=== PATIENT | male | born 1965 | race Caucasian/White ===

== ENCOUNTER 2019-04-25 18:20 | Inpatient (IN) ==
[2019-04-25] MEDS ORDERED: Ipratropium/Albuterol Neb 3 ML IH ONE (18:32)
[2019-04-25 19:06] LABS: Basophils % 0.2 %; Hematocrit 43.4 % (37.5-50.1); Hemoglobin 15.2 g/dL (12.9-16.9); Lymphocytes # 0.7 K/mcL (0.6-4.6); Lymphocytes % 13.9 %; Mean Corpuscular Hemoglobin 31.9 pg (28.0-33.3); Mean Corpuscular Volume 91.2 fL (83.0-100.0); Mean Platelet Volume 10.8 fL (9.4-12.4); Monocytes # 0.3 K/mcL (0.0-1.3); Monocytes % 5.9 %; Platelet Count 106 K/mcL (140-400); Red Blood Count 4.76 M/mcL (4.19-5.50); White Blood Count 5.1 K/mcL (4.3-11.1)
[2019-04-25 19:20] LABS: Acetaminophen < 10 mcg/mL (10-20); Alanine Aminotransferase 13 Units/L (7-52); Albumin 4.1 g/dL (3.5-5.7); Albumin/Globulin Ratio 1.4 (1.1-2.2); Alkaline Phosphatase 40 Units/L (34-104); Aspartate Amino Transferase 40 Units/L (13-39); BUN/Creatinine Ratio 12 (6-26); Bilirubin,Direct 0.2 mg/dL (0.0-0.2); Bilirubin,Indirect 0.6 mg/dL (0.0-1.0); Bilirubin,Total 0.8 mg/dL (0.3-1.0); Blood Urea Nitrogen 11 mg/dL (6-20); Carbon Dioxide 25 mEq/L (23-29); Chloride 97 mEq/L (98-107); Ethanol < 10 mg/dL (Less than 10); Glucose 103 mg/dL (70-105); Osmolality,Calculated 274 (280-300); Salicylate < 2.5 mg/dL (15.0-30.0); Sodium 132 mEq/L (136-145); Total Protein 7.1 g/dL (6.4-8.9); eGFR For African Americans > 60 (> 60); eGFR For Non-African Americans > 60 (> 60)
[2019-04-25 19:32] LABS: Thyroid Stimulating Hormone 0.238 mcIU/mL (0.340-5.600)
[2019-04-25] MEDS ORDERED: Potassium Effervescent 25 MEQ TABLET.EFF PO ONE (19:34)
[2019-04-25 19:39] LABS: Bilirubin,Urine Small (Negative); Blood,Urine Negative (Negative); Clarity,Urine Clear (Clear); Color,Urine Dark Yellow (Yellow); Glucose,Urine (UA) Normal (Normal); Ketones,Urine Trace mg/dL (Negative); Leukocyte Esterase,Urine Negative (Negative); Nitrite,Urine Negative (Negative); Protein,Urine 100 mg/dL (Neg-Trace); Specific Gravity,Urine 1.027 (1.010-1.025); Urobilinogen,Urine Normal (Normal)
[2019-04-25 19:42] LABS: Bacteria,Urine None Seen per hpf (None-Few); Hyaline Casts,Urine Few per lpf (None-Few); RBC,Urine 0-3 per hpf (0-3); Squamous Epithelial Cell,Urine Many per lpf (None-Few)
[2019-04-25 19:54] LABS: Amphetamine Screen,Urine Negative ng/mL (Cutoff=1000); Barbiturate Screen,Urine Negative ng/mL (Cutoff=200); Benzodiazepines Screen,Urine Positive ng/mL (Cutoff=200); Cannabinoid Screen,Urine Negative ng/mL (Cutoff = 50); Cocaine Screen,Urine Negative ng/mL (Cutoff= 300); Opiate Screen,Urine Positive ng/mL (Cutoff=300); Phencyclidine Screen,Urine Negative ng/mL (Cutoff=25)
[2019-04-25 19:55] LABS: Mucus,Urine Moderate per lpf (Few); Renal Epithelial Cells,Urine Few per hpf (None-Few)
[2019-04-25] MEDS ORDERED: Ondansetron ODT 4 MG TAB.RAPDIS SL ONE (20:08)
[2019-04-25] MEDS ORDERED: Nicotine 21 MG PATCH.TD24 TD ONE (20:35)
[2019-04-25] MEDS ORDERED: Albuterol 2.5 MG/3 ML NEBULIZER IH ONE (21:41)
[2019-04-25] MEDS ORDERED: 0.9 % Sodium Chloride 1,000 ML IVC ONE (23:39)
[2019-04-25] MEDS ORDERED: levoFLOXacin 750 MG/150 ML 750 MG/150 ML BAG IVPB ONE (23:39)
[2019-04-25 23:42] LABS: Triiodothyronine (T3) Free 3.84 pg/mL (2.50-3.90)
[2019-04-26] MEDS ORDERED: 0.9 % Sodium Chloride 1,000 ML IVC ONE (00:26)
[2019-04-26] MEDS ORDERED: Naloxone 0.4 MG/ML INJ IVP PRN (02:35)
[2019-04-26] MEDS ORDERED: Ondansetron 4 MG/2 ML VIAL IVP PRN (02:35)
[2019-04-26] MEDS: Ipratropium/Albuterol Neb 3 ML IH SCH ×7 (03:50→23:19)
[2019-04-26] MEDS: 0.9 % Sodium Chloride 1,000 ML IVC SCH ×2 (04:44→13:56)
[2019-04-26] MEDS ORDERED: Haloperidol Lactate 5 MG/ML VIAL IVP ONE ×3 (05:12→21:46)
[2019-04-26] MEDS ORDERED: *HR* Promethazine 25 MG/ML VIAL IVP ONE ×3 (05:12→21:41)
[2019-04-26 06:41] LABS: Hematocrit 37.3 % (37.5-50.1); Immature Granulocytes % 0.9 % (0-4); Lymphocytes # 0.8 K/mcL (0.6-4.6); Lymphocytes % 17.2 %; Mean Corpuscular HGB Conc 34.9 g/dL (31.6-35.5); Mean Corpuscular Hemoglobin 32.1 pg (28.0-33.3); Mean Corpuscular Volume 92.1 fL (83.0-100.0); Mean Platelet Volume 10.8 fL (9.4-12.4); Monocytes # 0.2 K/mcL (0.0-1.3); Monocytes % 4.7 %; Neutrophils # 3.6 K/mcL (1.6-8.9); Red Blood Count 4.05 M/mcL (4.19-5.50); Red Cell Distribution Width 15.1 % (11.5-14.5); Segmented Neutrophils % 77.2 %; White Blood Count 4.7 K/mcL (4.3-11.1)
[2019-04-26 06:42] LABS: Platelet Count 93 K/mcL (140-400)
[2019-04-26 06:43] LABS: Immature Platelets 4.8 % (1.1-6.1)
[2019-04-26 07:02] LABS: BUN/Creatinine Ratio 13 (6-26); Blood Urea Nitrogen 10 mg/dL (6-20); Calcium 8.1 mg/dL (8.6-10.3); Carbon Dioxide 23 mEq/L (23-29); Chloride 100 mEq/L (98-107); Glucose 112 mg/dL (70-105); Magnesium 1.7 mg/dL (1.6-2.6); Osmolality,Calculated 280 (280-300); Sodium 135 mEq/L (136-145); eGFR For African Americans > 60 (> 60); eGFR For Non-African Americans > 60 (> 60)
[2019-04-26] MEDS: Potassium Chloride Elixir 20 MEQ/15 ML UDC PO SCH ×2 (08:14→16:36)
[2019-04-26] MEDS: *HR* Enoxaparin 40 MG/0.4 ML SYRINGE SQ SCH (08:15)
[2019-04-26] MEDS ORDERED: Haloperidol Lactate 5 MG/ML VIAL IM PRN ×2 (09:46→09:48)
[2019-04-26] MEDS ORDERED: *HR* LORazepam 2 MG/ML VIAL IVP PRN (12:17)
[2019-04-26 13:10] LABS: Creatine Kinase 707 Units/L (30-223)
[2019-04-26] MEDS ORDERED: Potassium Chloride Elixir 20 MEQ/15 ML UDC PO ONE (14:26)
[2019-04-26] MEDS: *HR* LORazepam 2 MG/ML VIAL IVP PRN (20:00)
[2019-04-26] MEDS ORDERED: Nicotine 21 MG PATCH.TD24 TD ONE (20:24)
[2019-04-26 20:33] LABS: ABG Base Excess -1 mEq/L (-2 to 3); ABG HCO3 26 mEq/L (21-27); ABG Oxygen Saturation 61 % (95-98); ABG PCO2 47 mmHg (35-45); ABG PH 7.34 pH Units (7.32-7.45); ABG PO2 34 mmHg (85-104); ABG TCO2 27 mEq/L (20-26)
[2019-04-26 20:39] LABS: ABG Base Excess -2 mEq/L (-2 to 3); ABG HCO3 23 mEq/L (21-27); ABG Oxygen Saturation 92 % (95-98); ABG PCO2 39 mmHg (35-45); ABG PH 7.38 pH Units (7.32-7.45); ABG PO2 65 mmHg (85-104); ABG TCO2 24 mEq/L (20-26)
[2019-04-26] MEDS ORDERED: Levalbuterol Neb 1.25 MG/3 ML ONE (20:41)
[2019-04-26] MEDS: Levalbuterol Neb 1.25 MG/3 ML IH SCH (23:20)
[2019-04-27] MEDS ORDERED: levoFLOXacin 750 MG/150 ML 750 MG/150 ML BAG IVPB SCH (00:01)
[2019-04-27] MEDS: *HR* LORazepam 2 MG/ML VIAL IVP PRN ×2 (00:11→20:26)
[2019-04-27 01:14] LABS: Bilirubin,Urine Small (Negative); Blood,Urine Moderate (Negative); Clarity,Urine Clear (Clear); Color,Urine Yellow (Yellow); Glucose,Urine (UA) Normal (Normal); Ketones,Urine 80 mg/dL (Negative); Leukocyte Esterase,Urine Negative (Negative); Nitrite,Urine Negative (Negative); Protein,Urine 100 mg/dL (Neg-Trace); Specific Gravity,Urine >= 1.030 (1.010-1.025); Urobilinogen,Urine Normal (Normal)
[2019-04-27 01:15] LABS: Bacteria,Urine None Seen per hpf (None-Few); Hyaline Casts,Urine None Seen per lpf (None-Few); Squamous Epithelial Cell,Urine Many per lpf (None-Few)
[2019-04-27 01:32] LABS: RBC,Urine 0-3 per hpf (0-3)
[2019-04-27 02:04] LABS: Basophils % 0.2 %; Hematocrit 38.1 % (37.5-50.1); Immature Granulocytes % 0.6 % (0-4); Immature Platelets 5.4 % (1.1-6.1); Lymphocytes % 21.3 %; Mean Corpuscular HGB Conc 34.1 g/dL (31.6-35.5); Mean Corpuscular Hemoglobin 31.9 pg (28.0-33.3); Mean Corpuscular Volume 93.6 fL (83.0-100.0); Mean Platelet Volume 10.6 fL (9.4-12.4); Monocytes # 0.3 K/mcL (0.0-1.3); Monocytes % 5.7 %; Neutrophils # 3.4 K/mcL (1.6-8.9); Red Blood Count 4.07 M/mcL (4.19-5.50); Red Cell Distribution Width 15.4 % (11.5-14.5); Segmented Neutrophils % 72.2 %; White Blood Count 4.7 K/mcL (4.3-11.1)
[2019-04-27] MEDS ORDERED: Acetaminophen IV 1,000 MG/100 ML INFUS..BTL IVPB ONE (02:04)
[2019-04-27 02:07] LABS: Platelet Count 89 K/mcL (140-400)
[2019-04-27 02:21] LABS: BUN/Creatinine Ratio 17 (6-26); Blood Urea Nitrogen 13 mg/dL (6-20); Calcium 8.4 mg/dL (8.6-10.3); Carbon Dioxide 25 mEq/L (23-29); Chloride 103 mEq/L (98-107); Glucose 99 mg/dL (70-105); Osmolality,Calculated 286 (280-300); Potassium 3.5 mEq/L (3.5-5.1); Sodium 138 mEq/L (136-145); eGFR For African Americans > 60 (> 60); eGFR For Non-African Americans > 60 (> 60)
[2019-04-27] MEDS: Levalbuterol Neb 1.25 MG/3 ML IH SCH ×2 (04:28→07:39)
[2019-04-27] MEDS ORDERED: Nicotine 21 MG PATCH.TD24 TD ONE (07:14)
[2019-04-27] MEDS ORDERED: Furosemide 40 MG/4 ML VIAL IVP ONE ×2 (08:18→12:00)
[2019-04-27] MEDS: *HR* Enoxaparin 40 MG/0.4 ML SYRINGE SQ SCH (09:43)
[2019-04-27] MEDS: Nicotine 21 MG PATCH.TD24 TD SCH (09:43)
[2019-04-27] MEDS ORDERED: Isovue-370 500 ML BOTTLE IVP ONE ×2 (10:46→10:51)
[2019-04-27] MEDS: Budesonide/Formoterol 160/4.5 1 PUFF INH IH SCH ×2 (11:47→20:29)
[2019-04-27] MEDS: MethylPREDNISolone 40 MG/ML VIAL IVP SCH ×3 (11:57→20:26)
[2019-04-27] MEDS: Ampicillin 2 GM in 0.9 % Sodium Chloride Mini Bag 100 ML IVPB SCH ×4 (11:57→23:48)
[2019-04-27] MEDS: Cefepime HCl 2,000 MG in 0.9 % Sodium Chloride Mini Bag 100 ML IVP SCH ×2 (11:58→20:26)
[2019-04-27] MEDS: 0.9 % Sodium Chloride 1,000 ML IVC SCH (15:30)
[2019-04-27] MEDS: Acetaminophen 325 MG TABLET PO PRN (17:11)
[2019-04-27] MEDS ORDERED: Haloperidol Lactate 5 MG/ML VIAL IVP ONE (21:04)
[2019-04-27] MEDS ORDERED: *HR* Promethazine 25 MG/ML VIAL IVP ONE (21:05)
[2019-04-27] MEDS: Topiramate 25 MG TABLET PO SCH (22:06)
[2019-04-28] MEDS: *HR* LORazepam 2 MG/ML VIAL IVP PRN ×2 (01:47→14:55)
[2019-04-28] MEDS ORDERED: Haloperidol Lactate 5 MG/ML VIAL IVP ONE (01:53)
[2019-04-28] MEDS: 0.9 % Sodium Chloride 1,000 ML IVC SCH (01:53)
[2019-04-28] MEDS: Levalbuterol Neb 1.25 MG/3 ML IH SCH ×7 (02:20→23:27)
[2019-04-28] MEDS: Cefepime HCl 2,000 MG in 0.9 % Sodium Chloride Mini Bag 100 ML IVP SCH ×3 (03:32→19:58)
[2019-04-28] MEDS: MethylPREDNISolone 40 MG/ML VIAL IVP SCH ×3 (03:32→20:00)
[2019-04-28] MEDS: Ampicillin 2 GM in 0.9 % Sodium Chloride Mini Bag 100 ML IVPB SCH ×5 (03:33→19:59)
[2019-04-28 07:03] LABS: Hematocrit 36.8 % (37.5-50.1); Red Cell Distribution Width 15.7 % (11.5-14.5)
[2019-04-28 07:04] LABS: Hemoglobin 12.6 g/dL (12.9-16.9); Lymphocytes # 0.5 K/mcL (0.6-4.6); Mean Corpuscular HGB Conc 34.2 g/dL (31.6-35.5); Mean Corpuscular Hemoglobin 32.5 pg (28.0-33.3); Mean Corpuscular Volume 94.8 fL (83.0-100.0); Mean Platelet Volume 10.6 fL (9.4-12.4); Platelet Count 127 K/mcL (140-400); Red Blood Count 3.88 M/mcL (4.19-5.50); White Blood Count 1.9 K/mcL (4.3-11.1)
[2019-04-28 07:24] LABS: BUN/Creatinine Ratio 26 (6-26); Blood Urea Nitrogen 17 mg/dL (6-20); Calcium 8.3 mg/dL (8.6-10.3); Carbon Dioxide 21 mEq/L (23-29); Chloride 102 mEq/L (98-107); Glucose 120 mg/dL (70-105); Osmolality,Calculated 299 (280-300); Potassium 2.7 mEq/L (3.5-5.1); Sodium 143 mEq/L (136-145); eGFR For African Americans > 60 (> 60); eGFR For Non-African Americans > 60 (> 60)
[2019-04-28] MEDS: Budesonide/Formoterol 160/4.5 1 PUFF INH IH SCH ×2 (07:34→20:11)
[2019-04-28 08:07] LABS: Neutrophils # 1.4 K/mcL (1.6-8.9)
[2019-04-28 08:08] LABS: Platelet Estimate Slight Decrease (Normal)
[2019-04-28 08:31] LABS: Adenovirus Not Detected (Not Detect); Bordetella Pertussis Not Detected (Not Detect); Chlamydophila pneumoniae Not Detected (Not Detect); Coronavirus 229E Not Detected (Not Detect); Coronavirus HKU1 Not Detected (Not Detect); Coronavirus NL63 Not Detected (Not Detect); Coronavirus OC43 Not Detected (Not Detect); Human Metapneumovirus Not Detected (Not Detect); Human Rhinovirus/Enterovirus Not Detected (Not Detect); Influenza B Not Detected (Not Detect); Mycoplasma pneumoniae Not Detected (Not Detect); Parainfluenza Virus 1 Not Detected (Not Detect); Parainfluenza Virus 2 Not Detected (Not Detect); Parainfluenza Virus 3 Not Detected (Not Detect); Parainfluenza Virus 4 Not Detected (Not Detect); Respiratory Syncytial Virus Not Detected (Not Detect)
[2019-04-28 08:34] LABS: Influenza A Subtype 2009 H1 DETECTED (Not Detect)
[2019-04-28] MEDS: *HR* Enoxaparin 40 MG/0.4 ML SYRINGE SQ SCH (09:29)
[2019-04-28] MEDS: Nicotine 21 MG PATCH.TD24 TD SCH (09:29)
[2019-04-28] MEDS: Topiramate 25 MG TABLET PO SCH ×2 (09:29→20:01)
[2019-04-28] MEDS: Potassium Chloride Elixir 20 MEQ/15 ML UDC PO SCH ×2 (10:41→12:44)
[2019-04-28 16:10] LABS: Folate 3.2 ng/mL (3.0-16.0)
[2019-04-29] MEDS: Ampicillin 2 GM in 0.9 % Sodium Chloride Mini Bag 100 ML IVPB SCH ×4 (00:33→11:58)
[2019-04-29 01:17] LABS: Hematocrit 33.7 % (37.5-50.1); Hemoglobin 11.7 g/dL (12.9-16.9); Mean Corpuscular HGB Conc 34.7 g/dL (31.6-35.5); Mean Corpuscular Hemoglobin 31.5 pg (28.0-33.3); Mean Corpuscular Volume 90.8 fL (83.0-100.0); Mean Platelet Volume 10.3 fL (9.4-12.4); Monocytes # 0.1 K/mcL (0.0-1.3); Platelet Count 161 K/mcL (140-400); Red Blood Count 3.71 M/mcL (4.19-5.50); Red Cell Distribution Width 15.5 % (11.5-14.5); White Blood Count 2.4 K/mcL (4.3-11.1)
[2019-04-29 01:34] LABS: BUN/Creatinine Ratio 32 (6-26); Blood Urea Nitrogen 19 mg/dL (6-20); Calcium 8.2 mg/dL (8.6-10.3); Carbon Dioxide 23 mEq/L (23-29); Chloride 107 mEq/L (98-107); Glucose 203 mg/dL (70-105); Osmolality,Calculated 298 (280-300); Potassium 2.6 mEq/L (3.5-5.1); Sodium 140 mEq/L (136-145); eGFR For African Americans > 60 (> 60); eGFR For Non-African Americans > 60 (> 60)
[2019-04-29 01:53] LABS: Lymphocytes # 0.7 K/mcL (0.6-4.6); Neutrophils # 1.6 K/mcL (1.6-8.9)
[2019-04-29] MEDS ORDERED: Potassium Chloride 40 MEQ, Lidocaine 1% 2 ML in 0.9 % Sodium Chloride 500 ML IVPB ONE (01:53)
[2019-04-29 01:54] LABS: Platelet Estimate Normal (Normal); Reactive Lymphocytes Present (Not Present)
[2019-04-29] MEDS ORDERED: *HR* Promethazine 25 MG/ML VIAL IVP ONE (03:19)
[2019-04-29] MEDS: MethylPREDNISolone 40 MG/ML VIAL IVP SCH (03:33)
[2019-04-29] MEDS: Levalbuterol Neb 1.25 MG/3 ML IH SCH ×5 (03:33→20:49)
[2019-04-29] MEDS: Cefepime HCl 2,000 MG in 0.9 % Sodium Chloride Mini Bag 100 ML IVP SCH ×3 (04:49→21:32)
[2019-04-29] MEDS: Budesonide/Formoterol 160/4.5 1 PUFF INH IH SCH ×2 (07:13→20:48)
[2019-04-29] MEDS: Topiramate 25 MG TABLET PO SCH ×2 (11:50→21:32)
[2019-04-29] MEDS: predniSONE 20 MG TABLET PO SCH (11:50)
[2019-04-29] MEDS: Nicotine 21 MG PATCH.TD24 TD SCH (11:53)
[2019-04-29] MEDS: *HR* Enoxaparin 40 MG/0.4 ML SYRINGE SQ SCH (11:54)
[2019-04-29] MEDS ORDERED: Cyanocobalamin (B-12) 1,000 MCG/ML VIAL IM ONE (12:47)
[2019-04-29 15:00] LABS: C.difficile Toxin A/B Gene PCR Not detected (Not detect); Campylobacter by PCR Not detected (Not detect); Plesiomonas shigelloides PCR Not detected (Not detect); Salmonella PCR Not detected (Not detect); Vibrio PCR Not detected (Not detect); Vibrio cholerae PCR Not detected (Not detect); Yersinia enterocolitica PCR Not detected (Not detect)
[2019-04-29 15:01] LABS: Adenovirus F 40/41 PCR Not detected (Not detect); Astrovirus PCR Not detected (Not detect); Cryptosporidium by PCR Not detected (Not detect); Cyclospora cayetanensis PCR Not detected (Not detect); E. coli O157 by PCR Not detected (Not detect); Entamoeba histolytica PCR Not detected (Not detect); Enteroaggregative E.coli(EAEC) Not detected (Not detect); Enteropathogenic E.coli(EPEC) Not detected (Not detect); Enterotoxigenic E.coli (ETEC) Not detected (Not detect); Giardia lamblia PCR Not detected (Not detect); Norovirus GI/GII PCR Not detected (Not detect); Rotavirus A PCR Not detected (Not detect); Sapovirus PCR Not detected (Not detect); Shig/EnteroinvasiveE coli EIEC Not detected (Not detect); Shigalike tox-prod E coli STEC Not detected (Not detect)
[2019-04-29] MEDS: Cyanocobalamin (B-12) 1,000 MCG TABLET PO SCH (15:50)
[2019-04-30] MEDS: Levalbuterol Neb 1.25 MG/3 ML IH SCH ×7 (00:13→23:36)
[2019-04-30] MEDS: *HR* Promethazine 25 MG/ML VIAL IVP PRN ×2 (01:19→18:23)
[2019-04-30] MEDS: Cefepime HCl 2,000 MG in 0.9 % Sodium Chloride Mini Bag 100 ML IVP SCH ×4 (03:19→21:07)
[2019-04-30] MEDS ORDERED: Prochlorperazine 10 MG/2 ML VIAL IVP PRN (03:34)
[2019-04-30] MEDS: *HR* LORazepam 2 MG/ML VIAL IVP PRN (04:48)
[2019-04-30] MEDS ORDERED: Haloperidol Lactate 5 MG/ML VIAL IVP ONE (05:37)
[2019-04-30] MEDS: Budesonide/Formoterol 160/4.5 1 PUFF INH IH SCH ×2 (07:42→20:35)
[2019-04-30] MEDS: Topiramate 25 MG TABLET PO SCH ×2 (09:20→21:07)
[2019-04-30] MEDS: Nicotine 21 MG PATCH.TD24 TD SCH (09:20)
[2019-04-30] MEDS: *HR* Enoxaparin 40 MG/0.4 ML SYRINGE SQ SCH (09:20)
[2019-04-30] MEDS: predniSONE 20 MG TABLET PO SCH (09:21)
[2019-04-30] MEDS: Cyanocobalamin (B-12) 1,000 MCG TABLET PO SCH (09:21)
[2019-04-30 10:58] LABS: Basophils % 0.2 %; Hematocrit 35.2 % (37.5-50.1); Hemoglobin 12.4 g/dL (12.9-16.9); Immature Granulocytes % 2.1 % (0-4); Lymphocytes # 0.8 K/mcL (0.6-4.6); Lymphocytes % 15.7 %; Mean Corpuscular HGB Conc 35.2 g/dL (31.6-35.5); Mean Corpuscular Hemoglobin 31.9 pg (28.0-33.3); Mean Corpuscular Volume 90.5 fL (83.0-100.0); Mean Platelet Volume 10.1 fL (9.4-12.4); Monocytes # 0.4 K/mcL (0.0-1.3); Monocytes % 7.4 %; Neutrophils # 3.6 K/mcL (1.6-8.9); Platelet Count 197 K/mcL (140-400); Red Blood Count 3.89 M/mcL (4.19-5.50); Red Cell Distribution Width 15.9 % (11.5-14.5); Segmented Neutrophils % 74.6 %
[2019-04-30 11:01] LABS: White Blood Count 4.8 K/mcL (4.3-11.1)
[2019-04-30 11:21] LABS: BUN/Creatinine Ratio 20 (6-26); Blood Urea Nitrogen 11 mg/dL (6-20); Calcium 8.3 mg/dL (8.6-10.3); Carbon Dioxide 21 mEq/L (23-29); Chloride 112 mEq/L (98-107); Glucose 103 mg/dL (70-105); Osmolality,Calculated 296 (280-300); Potassium 3.3 mEq/L (3.5-5.1); Sodium 143 mEq/L (136-145); eGFR For African Americans > 60 (> 60); eGFR For Non-African Americans > 60 (> 60)
[2019-04-30] MEDS ORDERED: Cyanocobalamin (B-12) 1,000 MCG/ML VIAL IM ONE (12:51)
[2019-04-30] MEDS: 0.9 % Sodium Chloride 1,000 ML IVC SCH (13:39)
[2019-04-30] MEDS ORDERED: Prochlorperazine 10 MG/2 ML VIAL IVP ONE (20:28)
[2019-05-01 03:03] LABS: Basophils % 0.4 %; Hematocrit 36.3 % (37.5-50.1); Hemoglobin 12.8 g/dL (12.9-16.9); Immature Granulocytes % 2.2 % (0-4); Lymphocytes # 0.9 K/mcL (0.6-4.6); Mean Corpuscular HGB Conc 35.3 g/dL (31.6-35.5); Mean Corpuscular Hemoglobin 31.8 pg (28.0-33.3); Mean Corpuscular Volume 90.1 fL (83.0-100.0); Mean Platelet Volume 10.2 fL (9.4-12.4); Monocytes # 0.4 K/mcL (0.0-1.3); Monocytes % 7.3 %; Neutrophils # 3.5 K/mcL (1.6-8.9); Platelet Count 192 K/mcL (140-400); Red Blood Count 4.03 M/mcL (4.19-5.50); Red Cell Distribution Width 15.6 % (11.5-14.5); Segmented Neutrophils % 71.1 %; White Blood Count 4.9 K/mcL (4.3-11.1)
[2019-05-01] MEDS: Levalbuterol Neb 1.25 MG/3 ML IH SCH ×5 (03:12→19:44)
[2019-05-01 03:20] LABS: BUN/Creatinine Ratio 18 (6-26); Blood Urea Nitrogen 9 mg/dL (6-20); Calcium 8.1 mg/dL (8.6-10.3); Carbon Dioxide 19 mEq/L (23-29); Chloride 111 mEq/L (98-107); Glucose 92 mg/dL (70-105); Magnesium 2.1 mg/dL (1.6-2.6); Osmolality,Calculated 284 (280-300); Phosphorous 1.2 mg/dL (2.7-4.5); Potassium 3.3 mEq/L (3.5-5.1); Sodium 138 mEq/L (136-145); eGFR For African Americans > 60 (> 60); eGFR For Non-African Americans > 60 (> 60)
[2019-05-01] MEDS: 0.9 % Sodium Chloride 1,000 ML IVC SCH (04:00)
[2019-05-01] MEDS: Cefepime HCl 2,000 MG in 0.9 % Sodium Chloride Mini Bag 100 ML IVP SCH ×3 (04:00→22:11)
[2019-05-01] MEDS: Budesonide/Formoterol 160/4.5 1 PUFF INH IH SCH ×2 (07:46→19:44)
[2019-05-01] MEDS ORDERED: Potassium Phosphate 44 MEQ in 0.9 % Sodium Chloride 250 ML IVPB ONE (07:57)
[2019-05-01] MEDS: predniSONE 20 MG TABLET PO SCH (09:32)
[2019-05-01] MEDS: Topiramate 25 MG TABLET PO SCH ×2 (09:33→21:01)
[2019-05-01] MEDS: Cyanocobalamin (B-12) 1,000 MCG TABLET PO SCH (09:33)
[2019-05-01] MEDS: Nicotine 21 MG PATCH.TD24 TD SCH (09:33)
[2019-05-01 12:39] LABS: Red Blood Cell,CSF < 0.002 M/mcL
[2019-05-01] MEDS: amLODIPine 5 MG TABLET PO SCH (12:39)
[2019-05-01 12:49] LABS: Glucose,CSF 58 mg/dL (40-70); Total Protein,CSF 64 mg/dL (15-45)
[2019-05-01 13:00] LABS: Appearance,CSF Clear (Clear)
[2019-05-01] MEDS: *HR* Promethazine 25 MG/ML VIAL IVP PRN (13:06)
[2019-05-01] MEDS: Cefepime HCl 2,000 MG in Water for inj. (sterile) 20 ML IVP SCH (21:01)
[2019-05-01] MEDS: Ondansetron 4 MG/2 ML VIAL IVP PRN (21:01)
[2019-05-01] MEDS ORDERED: Levalbuterol Neb 1.25 MG/3 ML IH PRN (21:59)
[2019-05-02] MEDS: Benzonatate 100 MG CAPSULE PO PRN (00:11)
[2019-05-02] MEDS: 0.9 % Sodium Chloride 1,000 ML IVC SCH (00:11)
[2019-05-02] MEDS: *HR* Promethazine 25 MG/ML VIAL IVP PRN ×3 (00:12→17:47)
[2019-05-02] MEDS: Cefepime HCl 2,000 MG in Water for inj. (sterile) 20 ML IVP SCH ×3 (04:18→20:27)
[2019-05-02] MEDS: Ondansetron 4 MG/2 ML VIAL IVP PRN ×2 (04:18→12:45)
[2019-05-02 05:14] LABS: Basophils % 0.5 %; Eosinophils % 0.3 %; Hematocrit 39.6 % (37.5-50.1); Hemoglobin 13.8 g/dL (12.9-16.9); Immature Granulocytes % 2.8 % (0-4); Lymphocytes # 1.1 K/mcL (0.6-4.6); Lymphocytes % 17.9 %; Mean Corpuscular HGB Conc 34.8 g/dL (31.6-35.5); Mean Corpuscular Hemoglobin 32.3 pg (28.0-33.3); Mean Corpuscular Volume 92.7 fL (83.0-100.0); Mean Platelet Volume 10.2 fL (9.4-12.4); Monocytes # 0.5 K/mcL (0.0-1.3); Neutrophils # 4.3 K/mcL (1.6-8.9); Platelet Count 182 K/mcL (140-400); Red Blood Count 4.27 M/mcL (4.19-5.50); Red Cell Distribution Width 15.2 % (11.5-14.5); Segmented Neutrophils % 70.5 %; White Blood Count 6.1 K/mcL (4.3-11.1)
[2019-05-02 05:30] LABS: BUN/Creatinine Ratio 23 (6-26); Blood Urea Nitrogen 12 mg/dL (6-20); Carbon Dioxide 16 mEq/L (23-29); Chloride 106 mEq/L (98-107); Glucose 89 mg/dL (70-105); Magnesium 2.1 mg/dL (1.6-2.6); Osmolality,Calculated 283 (280-300); Phosphorous 1.6 mg/dL (2.7-4.5); Potassium 3.2 mEq/L (3.5-5.1); Sodium 137 mEq/L (136-145); eGFR For African Americans > 60 (> 60); eGFR For Non-African Americans > 60 (> 60)
[2019-05-02] MEDS: Budesonide/Formoterol 160/4.5 1 PUFF INH IH SCH ×2 (07:40→20:03)
[2019-05-02] MEDS: predniSONE 20 MG TABLET PO SCH (08:08)
[2019-05-02] MEDS: Cyanocobalamin (B-12) 1,000 MCG TABLET PO SCH (08:08)
[2019-05-02] MEDS: Topiramate 25 MG TABLET PO SCH ×2 (08:08→20:26)
[2019-05-02] MEDS: amLODIPine 5 MG TABLET PO SCH (08:08)
[2019-05-02] MEDS: Nicotine 21 MG PATCH.TD24 TD SCH (08:09)
[2019-05-03] MEDS: Cefepime HCl 2,000 MG in Water for inj. (sterile) 20 ML IVP SCH ×3 (06:12→21:30)
[2019-05-03 06:38] LABS: Basophils % 0.5 %; Eosinophils # 0.1 K/mcL (0.0-0.6); Eosinophils % 0.9 %; Hematocrit 36.5 % (37.5-50.1); Immature Granulocytes % 3.9 % (0-4); Lymphocytes # 1.2 K/mcL (0.6-4.6); Lymphocytes % 17.9 %; Mean Corpuscular HGB Conc 35.6 g/dL (31.6-35.5); Mean Corpuscular Hemoglobin 32.2 pg (28.0-33.3); Mean Corpuscular Volume 90.3 fL (83.0-100.0); Monocytes # 0.7 K/mcL (0.0-1.3); Monocytes % 10.9 %; Neutrophils # 4.3 K/mcL (1.6-8.9); Platelet Count 224 K/mcL (140-400); Red Blood Count 4.04 M/mcL (4.19-5.50); Red Cell Distribution Width 15.1 % (11.5-14.5); Segmented Neutrophils % 65.9 %; White Blood Count 6.5 K/mcL (4.3-11.1)
[2019-05-03 06:58] LABS: BUN/Creatinine Ratio 23 (6-26); Blood Urea Nitrogen 12 mg/dL (6-20); Calcium 7.7 mg/dL (8.6-10.3); Carbon Dioxide 18 mEq/L (23-29); Chloride 105 mEq/L (98-107); Glucose 78 mg/dL (70-105); Magnesium 2.1 mg/dL (1.6-2.6); Osmolality,Calculated 285 (280-300); Phosphorous 1.6 mg/dL (2.7-4.5); Potassium 3.1 mEq/L (3.5-5.1); Sodium 138 mEq/L (136-145); eGFR For African Americans > 60 (> 60); eGFR For Non-African Americans > 60 (> 60)
[2019-05-03] MEDS: Budesonide/Formoterol 160/4.5 1 PUFF INH IH SCH ×2 (07:47→22:21)
[2019-05-03] MEDS: amLODIPine 5 MG TABLET PO SCH (08:04)
[2019-05-03] MEDS: Nicotine 21 MG PATCH.TD24 TD SCH (08:05)
[2019-05-03] MEDS: Topiramate 25 MG TABLET PO SCH ×2 (08:05→21:31)
[2019-05-03] MEDS: Cyanocobalamin (B-12) 1,000 MCG TABLET PO SCH (08:05)
[2019-05-03] MEDS: Benzonatate 100 MG CAPSULE PO PRN ×2 (08:11→21:31)
[2019-05-03] MEDS ORDERED: Potassium Phosphate 44 MEQ in 0.9 % Sodium Chloride 250 ML IVPB ONE (08:26)
[2019-05-03] MEDS: Acetaminophen 325 MG TABLET PO PRN ×2 (14:24→21:31)
[2019-05-03] MEDS: Ondansetron 4 MG/2 ML VIAL IVP PRN ×2 (14:37→22:55)
[2019-05-03] MEDS: 0.9 % Sodium Chloride 1,000 ML IVC SCH (17:32)
[2019-05-04] MEDS: Acetaminophen 325 MG TABLET PO PRN (04:14)
[2019-05-04] MEDS: Cefepime HCl 2,000 MG in Water for inj. (sterile) 20 ML IVP SCH (04:14)
[2019-05-04 04:34] LABS: BUN/Creatinine Ratio 16 (6-26); Blood Urea Nitrogen 7 mg/dL (6-20); Calcium 7.9 mg/dL (8.6-10.3); Carbon Dioxide 17 mEq/L (23-29); Chloride 106 mEq/L (98-107); Glucose 68 mg/dL (70-105); Magnesium 2.1 mg/dL (1.6-2.6); Osmolality,Calculated 276 (280-300); Phosphorous 1.8 mg/dL (2.7-4.5); Potassium 3.4 mEq/L (3.5-5.1); Sodium 135 mEq/L (136-145); eGFR For African Americans > 60 (> 60); eGFR For Non-African Americans > 60 (> 60)
[2019-05-04] MEDS: Budesonide/Formoterol 160/4.5 1 PUFF INH IH SCH (07:30)
[2019-05-04] MEDS: amLODIPine 5 MG TABLET PO SCH (08:19)
[2019-05-04] MEDS: Ondansetron 4 MG/2 ML VIAL IVP PRN (08:19)
[2019-05-04] MEDS: Topiramate 25 MG TABLET PO SCH (08:20)
[2019-05-04] MEDS: Nicotine 21 MG PATCH.TD24 TD SCH (08:20)
[2019-05-04] MEDS: Cyanocobalamin (B-12) 1,000 MCG TABLET PO SCH (08:20)
[2019-05-04] MEDS ORDERED: Potassium Chloride Elixir 20 MEQ/15 ML UDC PO ONE (09:14)
[2019-05-04] MEDS: 0.9 % Sodium Chloride 1,000 ML IVC SCH (09:18)
[2019-05-04 12:56] VITALS: BP 150/99
[2019-05-04] MEDS: *HR* Promethazine 25 MG/ML VIAL IVP PRN (13:00)
[2019-05-04] MEDS ORDERED: Aminoglycoside Consult 1 EACH MC ONE (14:30)
== END 2019-05-04 14:31 | disposition home health service (06) | DRG 871 ==
LOC: EMEROOARM 18:20 → 3ANU 18:20 → SUATTDRO 04-28 13:21 → 3ANU 04-30 01:45
PROVIDERS: ADMIT Internal Medicine; ATTEND Internal Medicine